=== PATIENT | male | born 1975 | race Caucasian/White ===

== ENCOUNTER 2019-08-20 16:20 | Inpatient (IN) | payer SELFPAY ==
[~2019-08-20] VITALS: Ht 175.3 cm; Wt 73.6 kg
[~2019-08-20 16:20] MED LIST: CEPHALEXIN500 M1 PO; PREDNISONE20 M1 PO
[2019-08-20 16:21] VITALS: BP 121/74
[2019-08-20 17:54] LABS: BILIRUBIN 2+ (NEGATIVE); BLOOD NEGATIVE (NEGATIVE); CLARITY CLEAR (CLEAR); COLOR YELLOW (YELLOW); GLUCOSE NEGATIVE (NEGATIVE); KETONE 1+ (NEGATIVE); LEUKO ESTERASE NEGATIVE (NEGATIVE); NITRITE NEGATIVE (NEGATIVE); SPECIFIC GRAVITY 1.025 (1.005-1.030)
[2019-08-20 17:54] LABS: BASO % 0.3 % (0.0-1.0); EOS # 0.2 10*3/uL (0.0-0.4); EOS % 1.6 % (1.0-4.0); HEMATOCRIT 37.5 % (42.0-52.0); HEMOGLOBIN 12.4 g/dl (14.0-18.0); LYMPH # 1.3 10*3/uL (1.3-4.4); LYMPH % 10.2 % (27.0-41.0); MEAN CELL VOLUME 87.4 fl (80.0-94.0); MEAN CORPUSCULAR HGB 28.9 pg (27.0-31.0); MEAN CORPUSCULAR HGB CONC 33.1 g/dl (33.0-37.0); MEAN PLATELET VOLUME 10.1 fl (9.6-12.3); MONO # 0.4 10*3/uL (0.1-1.0); MONO % 3.5 % (3.0-9.0); NEUT # 10.6 10*3/uL (2.3-7.9); NEUT % 84.2 % (47.0-73.0); PLATELET COUNT AUTOMATED 448 10*3/uL (130-400); RED BLOOD COUNT 4.29 10*6/uL (4.50-5.90); RED CELL DISTRI WIDTH 11.7 % (0-14.5); WHITE BLOOD COUNT 12.6 10*3/uL (4.8-10.8)
[2019-08-20 18:02] LABS: BACTERIA TRACE; EPITHELIAL CELLS 0-2; MUCOUS 3+; RBC 0-2 rbc/hpf (0-2)
[2019-08-20 18:25] LABS: ALBUMIN 2.7 gm/dl (3.1-4.5); ALKALINE PHOSPHATASE 84 U/L (45-117); BUN 10 mg/dl (7-24); CHLORIDE 104 mmol/L (98-107); POTASSIUM 3.3 mmol/L (3.5-5.1); SGOT/AST 17 IU/L (3-35); SGPT/ALT 25 U/L (12-78); SODIUM 136 mmol/L (136-145); TOTAL PROTEIN 7.5 gm/dL (6.4-8.2)
[2019-08-20 18:33] LABS: TROPONIN I < 0.015 ng/ml (<0.045)
[2019-08-20] MEDS ORDERED: ZOFRAN4 MG PO (18:44)
[2019-08-20] MEDS ORDERED: LOMOTIL 2.5-0.1 EACH PO (18:44)
[2019-08-20 18:50] VITALS: BP 116/63
[2019-08-20 19:50] VITALS: BP 102/71
--- NOTE | 2019-08-20 19:50 | NUR ---
Time: 1950 A 44 year old MALE admitted to 5E under services of FLACA HANSEN DO, Pt. arrived via stretcher from ER. Chief complaint: VOMITING AND DIARRHEA. DICK MURPHY
--- NOTE | 2019-08-20 20:35 | NUR ---
12 HOUR CHART CHECK COMPLETE
--- NOTE | 2019-08-20 20:40 | NUR ---
PATIENT INITIAL ADMISSION ASSESSMENT COMPLETED WITHOUT INCIDENT. ORIENTED TO ROOM, BED, CALL LIGHT AND FLOOR. REVIEWED ORDERED MEDICATIONS. ALL QUESTIONS ANSWERED TO PATIENT SATISFACTION AT THIS TIME. CALL LIGHT WITHIN REACH. WILL CONTINUE TO MONITOR.
[2019-08-21] VITALS: BP 109/62
--- NOTE | 2019-08-21 04:15 | NUR ---
PATIENT RESTING IN BED IN A POSITION OF COMFORT, NO SIGNS OR SYMPTOMS OF DISTRESS NOTED AT THIS TIME. CALL LIGHT WITHIN REACH WILL CONTINUE TO MONITOR.
[2019-08-21 06:33] LABS: BUN 8 mg/dl (7-24); CHLORIDE 111 mmol/L (98-107); CHOLESTEROL 140 mg/dL (<200); CREATININE 0.75 mg/dL (0.70-1.30); HDL CHOLESTEROL 25 mg/dl (40-60); LDL CHOLESTEROL 98 mg/dL (9-159); PHOSPHOROUS 2.9 mg/dL (2.5-4.9); POTASSIUM 4.1 mmol/L (3.5-5.1); SODIUM 140 mmol/L (136-145); TRIGLYCERIDES 83 mg/dl (<150); VLDL CHOLESTEROL 17 mg/dL (6-40)
[2019-08-21 06:48] LABS: ACT PARTIAL THROMBO TIME 33.6 SECONDS (20.0-32.1)
[2019-08-21 07:12] LABS: BASO # 0.1 10*3/uL (0.0-0.1); BASO % 0.8 % (0.0-1.0); EOS # 0.3 10*3/uL (0.0-0.4); EOS % 4.2 % (1.0-4.0); HEMATOCRIT 33.7 % (42.0-52.0); HEMOGLOBIN 10.9 g/dl (14.0-18.0); LYMPH # 1.6 10*3/uL (1.3-4.4); LYMPH % 24.3 % (27.0-41.0); MEAN CORPUSCULAR HGB 29.3 pg (27.0-31.0); MEAN CORPUSCULAR HGB CONC 32.3 g/dl (33.0-37.0); MEAN PLATELET VOLUME 10.5 fl (9.6-12.3); MONO # 0.4 10*3/uL (0.1-1.0); MONO % 6.6 % (3.0-9.0); NEUT # 4.2 10*3/uL (2.3-7.9); NEUT % 63.9 % (47.0-73.0); PLATELET COUNT AUTOMATED 367 10*3/uL (130-400); RED BLOOD COUNT 3.72 10*6/uL (4.50-5.90); RED CELL DISTRI WIDTH 11.9 % (0-14.5); WHITE BLOOD COUNT 6.5 10*3/uL (4.8-10.8)
[2019-08-21 07:13] LABS: MEAN CELL VOLUME 90.6 fl (80.0-94.0)
[2019-08-21 08:00] VITALS: BP 107/69
--- NOTE | 2019-08-21 08:08 | NUR ---
PT INSTRUCTED ON FLUTTER. PT TOLERATED WELL. PT CAN DO ON HIS OWN.
--- NOTE | 2019-08-21 09:00 | NUR ---
Esol Instructor in to talk to patient. Patient states lives at home with alone. There are few steps in the home. Physician: josh her [facility] Home health services: none Patient's level of ADLs: INDEPENDENT Patient has working utilities: all working DME: none Follow-up physician's appointment after d/c: will be made by hospitalist nurse director upon discharge Does patient want to access PORTAL?: no Discharge plan discussed with patient. he lives at home, is independent in adls and ambulation, works, drives, he states he will return home when medically stable and denies any home needs. ROB SAN
[2019-08-21 12:00] VITALS: BP 108/55
[2019-08-21 16:00] VITALS: BP 98/56
--- NOTE | 2019-08-21 16:47 | NUR ---
PT MEDICATED WITH TYLENOL 650MG FOR C/O HEADACHE PAIN.
[2019-08-21 20:00] VITALS: BP 96/54
[2019-08-22] VITALS: BP 102/58
--- NOTE | 2019-08-22 00:55 | NUR ---
24 HR chart check completed.
[2019-08-22 06:38] LABS: BUN 5 mg/dl (7-24); CHLORIDE 108 mmol/L (98-107); POTASSIUM 3.9 mmol/L (3.5-5.1); SODIUM 139 mmol/L (136-145)
[2019-08-22 06:40] LABS: CREATININE 0.78 mg/dL (0.70-1.30)
[2019-08-22 06:42] LABS: BASO # 0.1 10*3/uL (0.0-0.1); EOS # 0.3 10*3/uL (0.0-0.4); EOS % 4.4 % (1.0-4.0); HEMATOCRIT 36.3 % (42.0-52.0); HEMOGLOBIN 11.5 g/dl (14.0-18.0); LYMPH # 1.8 10*3/uL (1.3-4.4); LYMPH % 25.2 % (27.0-41.0); MEAN CELL VOLUME 92.1 fl (80.0-94.0); MEAN CORPUSCULAR HGB 29.2 pg (27.0-31.0); MEAN CORPUSCULAR HGB CONC 31.7 g/dl (33.0-37.0); MEAN PLATELET VOLUME 10.4 fl (9.6-12.3); MONO # 0.4 10*3/uL (0.1-1.0); MONO % 5.2 % (3.0-9.0); NEUT # 4.5 10*3/uL (2.3-7.9); NEUT % 63.8 % (47.0-73.0); PLATELET COUNT AUTOMATED 419 10*3/uL (130-400); RED BLOOD COUNT 3.94 10*6/uL (4.50-5.90); WHITE BLOOD COUNT 7.1 10*3/uL (4.8-10.8)
[2019-08-22 08:00] VITALS: BP 108/65
--- NOTE | 2019-08-22 09:00 | NUR ---
case management visits with patient, patient states he will return home when medically stable, patient denies any home needs
[2019-08-22 12:00] VITALS: BP 102/59
[2019-08-22 16:00] VITALS: BP 114/72
--- NOTE | 2019-08-22 19:56 | NUR ---
C/O NAUSEA PER PATIENT HE COUGHED AND VOMITED FEW TIMES. ZOFRAN GIVEN PER ORDER FOR NAUSEA AND ALSO C/O HEADACHE RATED "7" POUNDING. TYLENOL GIVEN FOR HEADACHE. PT. STATES HE FEELS WARM. RECHECKING TEMP. SEE VIATL SIGNS.
[2019-08-22 20:00] VITALS: BP 104/59
--- NOTE | 2019-08-22 21:00 | NUR ---
ZOFRAN EFFECTIVE FOR NAUSEA/VOMITING. TYLENOL SLIGHTLY EFFECTIVE FOR HEADACHE ALSO TEMP DOWN.
[2019-08-23] VITALS: BP 107/59
--- NOTE | 2019-08-23 | NUR ---
PATIENT LYING IN BED, DENIES ANY PROBLEMS AT THIS TIME. WILL MONITOR.
--- NOTE | 2019-08-23 02:55 | NUR ---
24 HR chart check completed.
[2019-08-23 07:26] LABS: BUN 7 mg/dl (7-24); CHLORIDE 106 mmol/L (98-107); CREATININE 0.83 mg/dL (0.70-1.30); POTASSIUM 3.9 mmol/L (3.5-5.1); SODIUM 139 mmol/L (136-145)
[2019-08-23 08:00] VITALS: BP 100/60
--- NOTE | 2019-08-23 09:00 | NUR ---
case management visits with patient he states he will return home when medically stable for discharge
[2019-08-23 12:00] VITALS: BP 108/73
[2019-08-23] MEDS ORDERED: DOXYCYCLINE100 M3 PO (12:50)
[2019-08-23] MEDS ORDERED: AUGMENTIN 875-875 MG PO (12:50)
--- NOTE | 2019-08-23 13:55 | NUR ---
PATIENT DISCHARGED TO HOME. ALL PERSONAL BELONGINGS SENT WITH PATIENT. IV DISCONTINUED. DISCHARGE INSTRUCTIONS GIVEN AND REVIEWED WITH PATIENT. PATIENT INFORMED OF PRESCRIPTIONS BEING SENT TO [facility] IN [place]. PATIENT INFORMED OF FOLLOW UP APPOINTMENT WITH ON 08/30.
== END 2019-08-23 13:55 | disposition home or self-care (01) | DRG 871 ==
LOC: ED 16:20 → 5E 18:54 → EDHOLD 18:54 → 5E 19:39
PROVIDERS: Emergency Medicine; Internal Medicine; Student in an Organized Health Care Education/Training Program; ADMIT Internal Medicine
DX: A41.9 Sepsis, unspecified organism (principal); E43 Unspecified severe protein-calorie malnutrition; J13 Pneumonia due to Streptococcus pneumoniae; Z88.1 Allergy status to other antibiotic agents; D69.6 Thrombocytopenia, unspecified; R63.4 Abnormal weight loss; Z82.49 Family history of ischemic heart disease and other diseases of the circulatory system; Z84.1 Family history of disorders of kidney and ureter; F17.210 Nicotine dependence, cigarettes, uncomplicated; E87.6 Hypokalemia; R73.9 Hyperglycemia, unspecified; E83.41 Hypermagnesemia; A49.1 Streptococcal infection, unspecified site; Z68.24 Body mass index [BMI] 24.0-24.9, adult

== ENCOUNTER 2020-01-14 06:24 | Emergency (ER) | payer SELFPAY ==
[~2020-01-14] VITALS: Ht 175.2 cm; Wt 85.3 kg
[~2020-01-14 06:24] MED LIST changes: +AUGMENTIN 875-875 MG PO; +DOXYCYCLINE100 M3 PO; +LOMOTIL 2.5-0.1 EACH PO; +ZOFRAN4 MG PO
[2020-01-14 07:10] LABS: BASO # 0.1 10*3/uL (0.0-0.1); BASO % 0.6 % (0.0-1.0); EOS # 1.5 10*3/uL (0.0-0.4); EOS % 14.3 % (1.0-4.0); HEMATOCRIT 49.2 % (42.0-52.0); HEMOGLOBIN 16.8 g/dl (14.0-18.0); LYMPH # 1.6 10*3/uL (1.3-4.4); LYMPH % 15.5 % (27.0-41.0); MEAN CELL VOLUME 84.5 fl (80.0-94.0); MEAN CORPUSCULAR HGB 28.9 pg (27.0-31.0); MEAN CORPUSCULAR HGB CONC 34.1 g/dl (33.0-37.0); MEAN PLATELET VOLUME 10.6 fl (9.6-12.3); MONO # 0.5 10*3/uL (0.1-1.0); MONO % 4.5 % (3.0-9.0); NEUT # 6.7 10*3/uL (2.3-7.9); PLATELET COUNT AUTOMATED 282 10*3/uL (130-400); RED BLOOD COUNT 5.82 10*6/uL (4.50-5.90); RED CELL DISTRI WIDTH 13.2 % (0-14.5); WHITE BLOOD COUNT 10.3 10*3/uL (4.8-10.8)
[2020-01-14 07:25] LABS: ALBUMIN 3.2 gm/dl (3.1-4.5); ALKALINE PHOSPHATASE 144 U/L (45-117); BUN 11 mg/dl (7-24); CHLORIDE 104 mmol/L (98-107); CREATININE 1.18 mg/dL (0.70-1.30); POTASSIUM 3.9 mmol/L (3.5-5.1); SGOT/AST 9 IU/L (3-35); SGPT/ALT 22 U/L (12-78); SODIUM 136 mmol/L (136-145); TOTAL PROTEIN 6.9 gm/dL (6.4-8.2)
== END 2020-01-14 17:38 | disposition short-term general hospital (02) ==
LOC: ED 06:24
PROVIDERS: Emergency Medicine
DX: L51.1 Stevens-Johnson syndrome (principal); F17.200 Nicotine dependence, unspecified, uncomplicated; Z88.1 Allergy status to other antibiotic agents; Z79.2 Long term (current) use of antibiotics

== ENCOUNTER → 2023-12-03 | Outpatient (CLI) | payer OTHER ==
[2023-12-03 07:32] LABS: HEMATOCRIT 46.4 % (42.0-52.0); MEAN CELL VOLUME 88.5 fl (80.0-94.0); MEAN CORPUSCULAR HGB CONC 33.8 g/dl (33.0-37.0); MEAN PLATELET VOLUME 10.6 fl (9.6-12.3); RED BLOOD COUNT 5.24 10*6/uL (4.50-5.90); RED CELL DISTRI WIDTH 11.9 % (0-14.5); WHITE BLOOD COUNT 7.5 10*3/uL (4.8-10.8)
[2023-12-03 08:59] LABS: ALKALINE PHOSPHATASE 97 U/L (46-116); BUN 15 mg/dl (9-23); CHLORIDE 107 mmol/L (98-107); CHOLESTEROL 228 mg/dL (<200); LDL CHOLESTEROL 152 mg/dL (9-159); POTASSIUM 4.2 mmol/L (3.4-5.1); SGPT/ALT 33 U/L (5-49); TOTAL PROTEIN 7.1 gm/dL (6.0-8.0); TRIGLYCERIDES 131 mg/dl (<150)
[2023-12-05 13:06] LABS: CCP ANTIBODIES IGG/IGA 7 units (0-19)
== END | disposition home or self-care (01) ==
LOC: LAB 07:12
PROVIDERS: ATTEND Physician Assistant
DX: Z12.11 Encounter for screening for malignant neoplasm of colon (principal); Z87.891 Personal history of nicotine dependence; Z12.5 Encounter for screening for malignant neoplasm of prostate; M79.643 Pain in unspecified hand

== ENCOUNTER → 2023-12-15 | Outpatient (CLI) | payer OTHER | END | disposition home or self-care (01) | LOC: RAD 16:47 | PROVIDERS: ATTEND Physician Assistant | DX: M19.042 Primary osteoarthritis, left hand (principal); M19.041 Primary osteoarthritis, right hand ==

== ENCOUNTER → 2024-12-10 | Outpatient (CLI) | payer OTHER ==
[2024-12-10 16:30] LABS: HEMATOCRIT 44.6 % (42.0-52.0); MEAN CELL VOLUME 86.1 fl (80.0-94.0); MEAN CORPUSCULAR HGB 29.3 pg (27.0-31.0); MEAN CORPUSCULAR HGB CONC 34.1 g/dl (33.0-37.0); MEAN PLATELET VOLUME 10.7 fl (9.6-12.3); RED BLOOD COUNT 5.18 10*6/uL (4.50-5.90); RED CELL DISTRI WIDTH 12.3 % (0-14.5); WHITE BLOOD COUNT 8.2 10*3/uL (4.8-10.8)
[2024-12-10 17:12] LABS: ALKALINE PHOSPHATASE 99 U/L (46-116); BUN 10 mg/dl (9-23); CHLORIDE 102 mmol/L (98-107); CHOLESTEROL 237 mg/dL (<200); LDL CHOLESTEROL 148 mg/dL (9-159); POTASSIUM 4.1 mmol/L (3.4-5.1); SGPT/ALT 43 U/L (5-49); TOTAL PROTEIN 7.9 gm/dL (6.0-8.0); TRIGLYCERIDES 241 mg/dl (<150)
== END | disposition home or self-care (01) ==
LOC: LAB 16:17
PROVIDERS: ATTEND Physician Assistant
DX: Z00.00 Encounter for general adult medical examination without abnormal findings (principal)